=== PATIENT | male | born 1980 | race Caucasian/White ===

== ENCOUNTER 2016-04-11 21:02 | Emergency (ER) | payer MEDICAID ==
[~2016-04-11] VITALS: Ht 180.3 cm; Wt 112.0 kg
[2016-04-11 21:43] LABS: Basophils # (auto) 0 uL; Basophils % (auto) 0.1 % (0.0-2.0); Eosinophils # (auto) 0.2 uL; Eosinophils % (auto) 1.8 % (0.0-7.0); Hematocrit 48.7 % (41.0-53.0); Hemoglobin 16.4 g/dL (13.5-17.5); Lymphocytes # (auto) 2.3 uL; Lymphocytes % (auto) 19.2 % (10.0-50.0); Mean Corpuscular Hemoglobin 29.2 pg (28.0-32.0); Mean Corpuscular Hgb Conc. 33.6 g/dL (32.0-36.0); Mean Corpuscular Volume 87.1 fL (80.0-100.0); Monocytes # (auto) 1.1 uL; Neutrophils # (auto) 8.2 uL; Neutrophils % (auto) 69.9 % (37.0-80.0); Platelet Count (auto) 214 10^3/uL (140-450); Red Cell Distribution Width 14.1 % (11.6-16.0); White Blood Cell 11.8 10^3/uL (4.4-10.8)
[2016-04-11] MEDS ORDERED: SODIUM CHLORIDE 0.9% 1,000 ML IV ONE (21:45)
[2016-04-11 22:04] LABS: Albumin 3.7 g/dL (3.4-5.0); Anion Gap 8 (5-15); Aspartate Aminotransferase 15 U/L (15-37); Calcium 8.5 mg/dL (8.5-10.1); Carbon Dioxide 29 mmol/L (21-32); Chloride 105 mmol/L (98-107); GFR African American 106 mL/min; GFR Non-African American 88 mL/min; Glucose 73 mg/dL (74-106); Magnesium 2.1 mg/dL (1.6-2.6); Potassium 3.9 mmol/L (3.5-5.1); Sodium 142 mmol/L (136-145)
[2016-04-11 22:07] LABS: Alkaline Phosphatase 88 U/L (45-117); BUN/Creatinine Ratio 16.8; Bilirubin, Total 1.1 mg/dL (0.2-1.0); Blood Urea Nitrogen 17 mg/dL (7-18); Salicylate < 1.7 mg/dL (2.8-20.0); Total Protein 7.6 g/dL (6.4-8.2)
[2016-04-11 22:09] LABS: Acetaminophen < 2.0 ug/mL (10-30)
[2016-04-11] MEDS ORDERED: DEXTROSE 50% SYRINGE 50 ML IV ONE (22:30)
[2016-04-11] MEDS ORDERED: DEXTROSE (50%) 50ML SYRG IV ONE (22:45)
[2016-04-12 00:16] LABS: Urine RBC None Seen /hpf (0 - 3)
[2016-04-12 00:30] LABS: Urine Bilirubin Negative (Negative); Urine Blood Negative /uL (Negative); Urine Color Yellow (Yellow); Urine Ketone Negative (Negative); Urine Nitrite Negative (Negative); Urine pH 6.5 (5.0-8.0)
[2016-04-12 00:31] LABS: Urine Glucose 2+ mg/dL (Normal)
[2016-04-12 03:09] VITALS: BP 108/79
== END 2016-04-12 03:11 | disposition home or self-care (01) ==
LOC: ER 21:03
DX: R41.82 Altered mental status, unspecified (principal); E16.2 Hypoglycemia, unspecified; I10 Essential (primary) hypertension; F32.9 Major depressive disorder, single episode, unspecified; Z90.49 Acquired absence of other specified parts of digestive tract; Z98.84 Bariatric surgery status
CPT/HCPCS: 36415; 80053; 80320; 80329; 81001; 83735; 84484; 85025; 93005; 96361; 96374; 99285; G0434; J7030; J7042

== ENCOUNTER 2018-10-15 19:48 | Emergency (ER) | payer SELFPAY ==
[~2018-10-15] VITALS: Ht 177.8 cm; Wt 99.8 kg
[2018-10-16] MEDS ORDERED: ACETAMINOPHEN/CODEINE#3 (300/30mg) TAB PO ONE (01:15)
[2018-10-16] MEDS ORDERED: METHOCARBAMOL 500 MG TAB PO ONE (01:15)
[2018-10-16 01:37] VITALS: BP 112/60
== END 2018-10-16 01:42 | disposition home or self-care (01) ==
LOC: EDBD 19:48 → ER 19:56
DX: M54.9 Dorsalgia, unspecified (principal); M62.838 Other muscle spasm; I10 Essential (primary) hypertension; Z90.49 Acquired absence of other specified parts of digestive tract; V43.52XA Car driver injured in collision with other type car in traffic accident, initial encounter; Y93.89 Activity, other specified; Y99.8 Other external cause status; Y92.410 Unspecified street and highway as the place of occurrence of the external cause
CPT/HCPCS: 72125; 72131